=== PATIENT | female | born 1995 | race African-American/Black ===

== ENCOUNTER 2018-11-03 23:05 | Emergency (ER) | payer OTHER ==
--- NOTE | 2018-11-03 23:54 | ED Physician Chart ---
ED Chief Complaint/HPI - Patient Information Date Seen:: 11/03/18 Time Seen:: 23:45 Chief Complaint:: lower abdominal pain History of Present Illness:: Patient's had lower abdominal pain for 2 weeks. She's been nauseated but had no vomiting. She had one-time diarrhea earlier today and 1 times diarrhea 1 week ago. No vaginal bleeding. Patient thinks her last normal menstrual period was in July. She is 4 para 1 2. 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 Musculoskeletal: No bone or joint pain Endocrine: No polyuria, No polydipsia Psychiatric: No prior psych history Hematopoietic: No bruising Allergic/Immuno: No urticaria Neurological: No syncope, No focal symptoms ED Past Medical History - Past Medical History Past Medical History: No significant medical hx Family History: None Social History: Non Smoker, No Alcohol Surgical History: , other (1 section) Psychiatricy History: None Medication: Reviewed ED Physical Exam - Physical Examination General/Constitutional: Awake, Well-developed, well-nourished, Alert, No distress Head: Atraumatic Eyes: Lids, conjuctiva normal, PERRL Skin: Nl inspection, No rash, No skin lesions, No ecchymosis ENMT: External ears, nose nl, TM canals nl, Nasal exam nl, Lips, teeth, gums nl , Oropharynx nl, Tonsils nl Neck: No nuchal rigidity Respiratory: Nl effort/Exclusion, Clear to Auscultation, No Wheeze/Rhonchi/Rales Cardio Vascular: RRR, No murmur, gallop, rubs, NL S1 S2 GI: No organomegaly, No hernia, Normal BS's, Nondistended, No mass/bruits Other GI comments:: Lower abdominal tenderness Extremities: Normal digits & nails Neuro/Psych: No focal deficits Misc: No paraspinal tenderness ED Labs/Radiology/EKG Results - Lab Results Results: Laboratory Results WBC 6.8 Th/cmm (4.8-10.8) 11/03/18 00:01 RBC 4.06 Mil/cmm (3.80-5.10) 11/03/18 00:01 Hgb 9.9 gm/dL (12-16) L 11/03/18 00:01 Hct 30.3 % (41.0-60) L 11/03/18 00:01 MCV 74.6 fl (81-100) L 11/03/18 00:01 MCH 24.3 pg (27.0-31.0) L 11/03/18 00:01 MCHC Differential 32.6 pg (28.0-36.0) 11/03/18 00:01 RDW 15.3 % (11.5-20.0) 11/03/18 00:01 Plt Count 308 Th/cmm (150-400) 11/03/18 00:01 MPV 7.6 fl 11/03/18 00:01 Neutrophils % 55.2 % (40.0-80.0) 11/03/18 00:01 Lymphocytes % 27.6 % (20.0-50.0) 11/03/18 00:01 Monocytes % 10.1 % (2.0-10.0) H 11/03/18 00:01 Eosinophils % 5.6 % (0.0-5.0) H 11/03/18 00:01 Basophils % 1.5 % (0.0-2.0) 11/03/18 00:01 Sodium 136 mEq/L (136-145) 11/03/18 00:01 Potassium 3.6 mEq/L (3.5-5.1) 11/03/18 00:01 Chloride 105 mEq/L (98-107) 11/03/18 00:01 Carbon Dioxide 22.5 mEq/L (21.0-31.0) 11/03/18 00:01 Anion Gap 12.1 (7.0-16.0) 11/03/18 00:01 BUN 11 mg/dL (7-25) 11/03/18 00:01 Creatinine 0.6 mg/dL (0.6-1.2) 11/03/18 00:01 Est GFR ( Amer) > 60.0 ml/min (>90) 11/03/18 00:01 Est GFR (Non-Af Amer) > 60.0 ml/min 11/03/18 00:01 BUN/Creatinine Ratio 18.3 11/03/18 00: Glucose 91 mg/dL (70-105) 11/03/18 00: Calcium 9.3 mg/dL (8.6-10.3) 11/03/18 00: Magnesium 2.0 mg/dL (1.9-2.7) 11/03/18 00: Urine Source MIDSTREAM 11/04/18 00:00 Urine Color YELLOW 11/04/18 00:00 Urine Clarity CLEAR (CLEAR) 11/04/18 00:00 Urine pH 6.0 (4.6 - 8.0) 11/04/18 00:00 Ur Specific [place] >= 1.030 (1.005-1.030) 11/04/18 00:00 Urine Protein TRACE mg/dL (NEGATIVE) 11/04/18 00:00 Urine Glucose (UA) NEGATIVE mg/dL (NEGATIVE) 11/04/18 00:00 Urine Ketones NEGATIVE mg/dL (NEGATIVE) 11/04/18 00:00 Urine Blood NEGATIVE (NEGATIVE) 11/04/18 00:00 Urine Nitrate NEGATIVE (NEGATIVE) 11/04/18 00:00 Urine Bilirubin NEGATIVE (NEGATIVE) 11/04/18 00:00 Urine Urobilinogen 0.2 E.U./dL (0.2 - 1.0) 11/04/18 00:00 Ur Leukocyte Esterase NEGATIVE (NEGATIVE) 11/04/18 00:00 Urine RBC 0-2 /hpf (0-5) 11/04/18 00:00 Urine WBC 0-2 /hpf (0-5) 11/04/18 00:00 Ur Epithelial Cells MODERATE /lpf (FEW) 11/04/18 00:00 Urine Bacteria MODERATE /hpf (NONE SEEN) H 11/04/18 00:00 - Radiology Results Results: Pelvic ultrasound showed a normal 7 week intrauterine ED Septic Shock - . Is Septic Shock (SBP<90, OR Lactate>4 mmol\L) present?: No - <6hrs of presentation: Vital Signs: Vital Signs - 8 hr 11/03/18 23:05 Temp 98.1 F HR 93 RR 18 BP 116/78 O2 Sat % 98 ED Reassessment (Disposition) - Reassessment Reassessment Condition:: Unchanged - Diagnosis Diagnosis:: 7 week intrauterine ; iron deficiency anemia - Aftercare/Follow up Instructions Aftercare/Follow-Up Instructions:: Refer to Discharge Instructions Medication Prescribed:: vitamins with iron #100 to take one daily and Reglan 10 milligrams #20 to take 1 3 times a day as necessary for nausea and vomiting. - Patient Disposition Discharge/Transfer:: Home Condition at Disposition:: Stable, Unchanged
[2018-11-04 00:14] LABS: % BASOPHILS 1.5 % (0.0-2.0); % EOSINOPHILS 5.6 % (0.0-5.0); % LYMPHOCYTES 27.6 % (20.0-50.0); % MONOCYTES 10.1 % (2.0-10.0); % NEUTROPHILS 55.2 % (40.0-80.0); BASOPHILE ABSOLUTE 0.1 Th/cumm (0-0.2); EOSINOPHILE ABSOLUTE 0.4 Th/cmm (0.1-0.4); HEMATOCRIT 30.3 % (41.0-60); HEMOGLOBIN 9.9 gm/dL (12-16); LYMPHOCYTE ABSOLUTE 1.9 Th/cmm (1.5-3.0); MEAN CELL VOLUME 74.6 fl (81-100); MEAN CORPUSCULAR HEMOGLOBIN 24.3 pg (27.0-31.0); MEAN CORPUSCULAR HGB CONC 32.6 pg (28.0-36.0); MEAN PLATELET VOLUME 7.6 fl; MONOCYTE ABSOLUTE 0.7 Th/cmm (0.3-1.0); NEUTROPHILE ABSOLUTE 3.7 Th/cmm (1.8-8.0); PLATELET COUNT 308 Th/cmm (150-400); RED BLOOD COUNT 4.06 Mil/cmm (3.80-5.10); RED CELL DISTRIBUTION WIDTH 15.3 % (11.5-20.0); WHITE BLOOD COUNT 6.8 Th/cmm (4.8-10.8)
[2018-11-04 00:24] LABS: ANION GAP 12.1 (7.0-16.0); BUN - UREA NITROGEN 11 mg/dL (7-25); CALCIUM SERUM 9.3 mg/dL (8.6-10.3); CARBON DIOXIDE 22.5 mEq/L (21.0-31.0); CHLORIDE 105 mEq/L (98-107); CREATININE - SERUM 0.6 mg/dL (0.6-1.2); GFR AFRICAN-AMERICAN > 60.0 ml/min (>90); GFR NON AFRICAN-AMERICAN > 60.0 ml/min; GLUCOSE 91 mg/dL (70-105); POTASSIUM SERUM 3.6 mEq/L (3.5-5.1); SODIUM SERUM 136 mEq/L (136-145)
[2018-11-04 00:36] LABS: URINE BILIRUBIN NEGATIVE (NEGATIVE); URINE BLOOD NEGATIVE (NEGATIVE); URINE GLUCOSE (UA) NEGATIVE (NEGATIVE); URINE KETONE NEGATIVE (NEGATIVE); URINE LEUKOCYTE ESTERASE NEGATIVE (NEGATIVE); URINE MICROSCOPIC INDICATED? YES; URINE NITRATE NEGATIVE (NEGATIVE); URINE PROTEIN TRACE mg/dL (NEGATIVE); URINE SOURCE MIDSTREAM; URINE UROBILINOGEN 0.2 E.U./dL (0.2 - 1.0)
[2018-11-04 00:40] LABS: URINE CLARITY CLEAR (CLEAR); URINE COLOR YELLOW
[2018-11-04 00:48] LABS: URINE BACTERIA MODERATE /hpf (NONE SEEN); URINE EPITHELIAL CELLS MODERATE /lpf (FEW); URINE RBC 0-2 /hpf (0-5); URINE WBC 0-2 /hpf (0-5)
--- NOTE | 2018-11-04 09:04 | Diagnostic Imaging Report ---
OB ultrasound HISTORY: Pain Transvaginal sonographic technique utilized. Uterus measures 10.3 x 6.1 x 7.5 cm. There is a single intrauterine gestation with a well-defined sac. Decidual reaction is noted. A pole is seen. cardiac motion is noted (165 BPM). The crown-rump length equals 1.2 cm. This is consistent with a sonographic age of 7 weeks 0 days +/- 1 week. Yolk sac is seen. No other abnormalities within the pelvis. IMPRESSION: 1. Single intrauterine gestation with approximate age of 7 weeks 1 day +/- 1 week.
== END 2018-11-04 02:00 | disposition home or self-care (01) ==
LOC: ER 23:05
DX: O99.011 Anemia complicating pregnancy, first trimester (principal); D50.9 Iron deficiency anemia, unspecified; Z3A.01 Less than 8 weeks gestation of pregnancy; Z98.890 Other specified postprocedural states
CPT/HCPCS: 36415-UA; 76801-TC; 80048-TC; 81001-TC; 83735-TC; 85025-TC